=== PATIENT | male | born 1960 ===

== ENCOUNTER → 2016-05-20 | Day surgery (SDC) | payer BC ==
[2016-04-29 14:43] VITALS: Ht 180.3 cm; Wt 115.9 kg
[~2016-05-20] VITALS: Ht 180.3 cm; Wt 115.9 kg
[~2016-05-20] MED LIST: ASPI81TA28 PO; ATOR-22 PO; ATROPINE SULFATE 0.1 MG/ML 5ML SYR IV PRN; BUPIVACAINE 0.5 % 5 MG/1 ML MPF 30ML VIAL ONE; CEFAZOLIN 2000 MG/60 ML D5W IV SCH; DEXAMETHASONE SOD INJ 4 MG/ML VIAL ONE; EpHEDrine SULFATE INJ 50 MG/ML AMP IV PRN; FENTANYL CITRATE INJ 50 MCG/1 ML 2 ML VIAL IV PRN; FENTANYL CITRATE INJ 50 MCG/1 ML 2 ML VIAL ONE; FLUMAZENIL 0.1 MG/1 ML 10 ML VIAL IV PRN; GLUCOSAMINE PO; HYDR-5688 PO; HYDROCODONE/ACETAMOPHEN 5/325MG TAB PO PRN; HYDROmorphone INJ 0.5 MG/0.5 ML SYR IV PRN; LABETALOL HCL IV 5 MG/ML 20ML IV PRN; LACTATED RINGER'S 1000ML 1,000 ML IV SCH; LIDOCAINE HCL 2% 2 ML VIAL (20MG/ML) ONE; LSN/2025 PO; MEPERIDINE HCL 25 MG/ML CARP IV PRN; MIDAZOLAM HCL 1 MG/ML 2ML VIAL ONE; NALOXONE HCL 0.4 MG/1 ML VIAL/CARP IV PRN; ONDANSETRON INJ 2 MG/ML 2 ML VIAL IV PRN; ONDANSETRON INJ 2 MG/ML 2 ML VIAL ONE; PHENYLEPHRINE 100MCG/ML 5ML SYR IV PRN; PROPOFOL IV EMULSION 10 MG/ML 20 ML VIAL IV ONE; SODIUM CHLORIDE 0.9% 1000ML 1,000 ML IV SCH
--- NOTE | 2016-05-20 08:14 | Discharge Instructions-SurgCtr ---
Discharge Instructions Date of Service May 20, 2016. Visit Reason for Visit: Umbilical Hernia Discharge Discharge Diagnosis / Problem: umbilical hernia Discharge Goals Goal(s): Decrease discomfort, Improve function, Improve disease control Activity Recommendations Activity Limitations: as noted below Lifting Limitations: no more than 25 pounds Exercise/Sports Limitations: until after follow-up appointment May Resume Sexual Activity: when tolerated Shower/Bathe: tomorrow Driving or Machine Use: resume 3 days after discharge SPECIAL CARE INSTRUCTIONS: * Cover incisions and change daily for comfort/drainage. * May use ibuprofen for pain as tolerated. * Expect some swelling and bruising. Call your doctor if: * Temperature above 101 degrees * Pain not relieved by pain medicine ordered * There is increased drainage or redness from any incision * You have any unanswered questions or concerns [phone]. FOLLOW UP VISIT: If not already scheduled, please call the office for a follow-up visit. for next week- some sutures OFFICE PHONE NUMBER: Dr. Atkins Office Anesthesia . Post Anesthesia Instructions: If you have had General Anesthesia or IV Sedation: * Do not drive today. * Resume driving when surgeon permits. * Do not make important decisions or sign legal documents today. * Call surgeon for: 1. Temperature elevations greater than 101 degrees F. 2. Uncontrollable pain. 3. Excessive bleeding. 4. Persistent nausea and vomiting. 5. Medication intolerance (nausea, vomiting or rash). * For nausea and vomiting use only clear liquids such as: tea, soda, bouillon until nausea subsides, then gradually increase diet as tolerated. * If you have any concerns or questions, call your surgeon's office. If physician is unavailable and it is an emergency, call 911 or go to the nearest emergency room. . Diet Recommendations Home Diet: resume previous diet Pending Studies Studies pending at discharge: no Work Instructions Return To Work: after follow-up (no lifting more than 20 lbs if possible- may need 2-4 weeks off work) Medical Emergencies . Who to Call and When: Medical Emergencies: If at any time you feel your situation is an emergency, please call 911 immediately. . Non-Emergent Contact Non-Emergency issues call your: Primary Care Provider, Surgeon . . "Provider Documentation" section prepared by Shivam Atkins.
--- NOTE | 2016-05-20 08:44 | [facility] Post Operative Brief Note ---
Immediate Operative Summary Operative Date May 20, 2016. Pre-Operative Diagnosis Umbilical Hernia Post-Operative Diagnosis Same Procedure(s) Performed Umbilical Hernia Open Repair Surgeon Dr. Atkins Manager Dish Surgeon(s) None Estimated Blood Loss 5 mL Findings 1.5 cm defect Specimens None Anesthesia gen Complication(s) None Disposition Recovery Room / PACU
--- NOTE | 2016-05-20 09:29 | Anesthesia Progress Nt - [facility] ---
Anesthesia Post Op Note Date & Time May 20, 2016 at 09:29 Vital Signs Pain Intensity: 0 Vital Signs Past 12 Hours Date Time Temp Pulse Resp B/P Pulse Ox O2 Delivery O2 Flow Rate FiO2 05/20/16 09:20 121/84 05/20/16 09:19 37.0 73 16 127/86 94 Room Air 05/20/16 09:18 72 17 05/20/16 09:18 71 17 94 05/20/16 09:15 127/86 05/20/16 09:13 78 20 95 05/20/16 09:13 76 20 05/20/16 09:10 122/83 05/20/16 09:08 69 17 05/20/16 09:08 66 17 99 05/20/16 09:05 110/79 05/20/16 09:03 70 22 99 05/20/16 09:03 72 22 05/20/16 09:01 113/76 05/20/16 08:58 66 13 97 05/20/16 08:58 66 13 05/20/16 08:57 66 13 05/20/16 08:57 64 13 97 05/20/16 08:55 92/64 05/20/16 08:52 65 12 97 05/20/16 08:52 66 12 05/20/16 08:50 95/63 05/20/16 08:47 36.6 66 16 101/64 97 Diffusion Mask 10 05/20/16 08:47 65 12 97 05/20/16 08:47 64 12 05/20/16 07:03 37.0 88 16 135/91 97 Room Air Notes Mental Status: alert / awake / arousable, participated in evaluation Pt Amnestic to Procedure: Yes Nausea / Vomiting: adequately controlled Pain: adequately controlled Airway Patency, RR, SpO2: stable & adequate BP & HR: stable & adequate Hydration State: stable & adequate Anesthetic Complications: no major complications apparent
[2016-05-20 09:30] VITALS: TEMP 36.8
[2016-05-20 09:49] VITALS: BP 151/99; PULSE 74; O2SAT 96
--- NOTE | 2016-05-20 10:46 | OPERATIVE REPORT ---
DATE OF OPERATION: 05/20/2016 NAME OF OPERATION: Open umbilical hernia repair. PREOPERATIVE DIAGNOSIS: Umbilical hernia. POSTOPERATIVE DIAGNOSIS: Same with 1.5 cm defect. STAFF SURGEON: Dr. Atkins. ANESTHESIA: General. DESCRIPTION OF PROCEDURE: The patient was brought in the operating room and placed on the operating table in supine position. His abdomen was prepped and draped in usual fashion. A 0.5% plain Marcaine was used to anesthetize the skin, subcutaneous tissue and fascia. Transverse incision was made just above the umbilicus, carrying dissection down identifying the sac. The fascia was mobilized. The sac was opened. The hernia contents were dissected free and then reduced easily into a 1.5 cm defect. The umbilicus was then dissected away from the fascia and then the fascia closed using 2 interrupted #1 Ethibond sutures. The umbilicus was reattached to the fascia using 2-0 chromic catgut suture, then the subcutaneous tissue reapproximated using 2-0 plain catgut suture and then the skin reapproximated using 5-0 Prolene suture. The patient was transferred to recovery room in stable condition. I attest to the content of the Intraoperative Record and any orders documented therein. Any exceptio ns are noted below.
== END | disposition home or self-care (01) ==
LOC: X.SURG 06:44
PROVIDERS: ATTEND Surgery
DX: K42.9 Umbilical hernia without obstruction or gangrene (principal); I10 Essential (primary) hypertension; Z98.890 Other specified postprocedural states; E66.9 Obesity, unspecified; Z68.36 Body mass index [BMI] 36.0-36.9, adult; E78.00 Pure hypercholesterolemia, unspecified; Z82.49 Family history of ischemic heart disease and other diseases of the circulatory system; Z72.0 Tobacco use